=== PATIENT | female | born 1945 | race Two or more races ===

== ENCOUNTER → 2020-07-29 | Emergency (ER) | payer OTHER ==
[~2020-07-29] VITALS: Ht 154.9 cm; Wt 68.5 kg
[~2020-07-29] MED LIST: ASA81 MG; TENORMIN50 MG
== END | disposition home or self-care (01) ==
LOC: ER 13:31
DX: S00.83XA Contusion of other part of head, initial encounter (principal); S06.0X0A Concussion without loss of consciousness, initial encounter; M54.2 Cervicalgia; W06.XXXA Fall from bed, initial encounter; Y93.89 Activity, other specified; Y92.092 Bedroom in other non-institutional residence as the place of occurrence of the external cause; Y99.8 Other external cause status

== ENCOUNTER 2020-10-10 08:27 | Day surgery (SDC) | payer OTHER ==
[~2020-10-10 08:27] MED LIST changes: +LOTREL 10-20 M1 EACH PO; +VITAMIN C100 MG PO
[2020-10-10] MEDS ORDERED: TRAM1TAB98 PO (12:54)
[2020-10-10] MEDS ORDERED: DUI500 PO (12:54)
== END 2020-10-10 16:15 | disposition home or self-care (01) ==
LOC: CIR.AMB 08:27
PROVIDERS: ATTEND Orthopaedic Surgery Sports Medicine
DX: M23.252 Derangement of posterior horn of lateral meniscus due to old tear or injury, left knee (principal); M65.862 Other synovitis and tenosynovitis, left lower leg; Z20.822 Contact with and (suspected) exposure to COVID-19

== ENCOUNTER 2020-12-09 20:34 | Emergency (ER) | payer OTHER ==
[~2020-12-09] VITALS: Ht 154.9 cm; Wt 68.5 kg
[~2020-12-09 20:34] MED LIST changes: +DUI500 PO; +TRAM1TAB98 PO
[2020-12-09] MEDS ORDERED: DICLOFENAC SODI75 MG PO (21:07)
== END 2020-12-09 21:25 | disposition home or self-care (01) ==
LOC: ER 20:34
DX: M54.5 Low back pain (principal)

== ENCOUNTER 2020-12-10 10:51 | Emergency (ER) | payer OTHER ==
[~2020-12-10] VITALS: Ht 154.9 cm; Wt 68.5 kg
[~2020-12-10 10:51] MED LIST changes: +DICLOFENAC SODI75 MG PO
== END 2020-12-10 19:58 | disposition home or self-care (01) ==
LOC: ER 10:51
DX: M54.5 Low back pain (principal)

== ENCOUNTER 2023-09-16 18:01 | Emergency (ER) | payer OTHER ==
[~2023-09-16] VITALS: Ht 162.6 cm; Wt 65.8 kg
[2023-09-16] MEDS ORDERED: FAMOTIDINE/PF 20 MG/2 ML VIAL IV ONE (19:30)
[2023-09-16] MEDS ORDERED: ONDANSETRON HCL 2 MG/ML VIAL IV ONE (19:30)
[2023-09-16] MEDS ORDERED: 0.9 % SODIUM CHLORIDE 500 ML IV ONE (19:30)
[2023-09-16] MEDS ORDERED: KETOROLAC TROMETHAMINE 15 MG VIAL IV ONE (19:30)
[2023-09-16 20:03] LABS: HEMATOCRIT 40.1 % (36.0-45.00); HEMOGLOBIN 13.6 g/dL (12.0-15.00); MEAN CELL VOLUME 95.6 fL (80.00-100.00); MEAN CORPUSCULAR HEMOGLOBIN 32.5 pg (27.00-32.0); PLATELET COUNT 208 K/uL (150-450); RED CELL DISTRIBUTION WIDTH 13.1 % (11.5-14.5)
[2023-09-16 20:04] LABS: URINE APPEARANCE Clear; URINE BILIRRUBIN Negative (NEGATIVE); URINE BLOOD Small; URINE COLOR Yellow; URINE GLUCOSE Negative (NEGATIVE); URINE LEUKOCYTE Trace; URINE NITRATE Negative; URINE PROTEIN Trace (NEGATIVE)
[2023-09-16 20:07] LABS: URINE BACTERIA 80.6 uL (0.0-1933); URINE EPITHELIAL CELLS 12.2 uL (0.0-38.8); URINE RBC 74.4 uL (0.0-20.8); URINE WBC 13.1 uL (0.0-23.2)
[2023-09-16 20:33] LABS: ALBUMIN 3.8 gm/dL (3.4-5.0); BILIRUBIN TOTAL 0.99 mg/dL (0.3-1.2); CALCIUM 9.7 mg/dL (8.5-10.1); CREATININE SERUM 1.19 mg/dL (0.55-1.02); GFR 43.76; POTASSIUM 4.56 mEq/L (3.5-5.1); TOTAL PROTEIN 8.8 gm/dL (6.4-8.2)
[2023-09-16] MEDS ORDERED: TAMSULOSIN HCL 0.4 MG CAP PO ONE (21:30)
[2023-09-16] MEDS ORDERED: CEPHALEXIN500 MG PO (23:36)
[2023-09-16] MEDS ORDERED: DOLOGESIC 500-1 EACH PO (23:36)
[2023-09-16] MEDS ORDERED: TAMS0.4C PO (23:36)
[2023-09-16] MEDS ORDERED: ONDANSETRON ODT4 MG SL (23:36)
[2023-09-16] MEDS ORDERED: PEPCID AC20 MG PO (23:36)
== END 2023-09-16 23:45 ==
LOC: ER 18:01
PROVIDERS: Nurse Practitioner Family
DX: N20.0 Calculus of kidney (principal); R10.9 Unspecified abdominal pain; I10 Essential (primary) hypertension